=== PATIENT | female | born 1990 | race Caucasian/White ===

== ENCOUNTER 2017-03-04 19:18 | Emergency (ER) | payer OTHER ==
[2017-03-04] MEDS ORDERED: MIDAZOLAM HCL 5 MG/ML 2ML VIAL ONE (19:26)
[2017-03-04 19:28] VITALS: TEMP 36.9
[2017-03-04] MEDS ORDERED: NURSING VERBAL MED ORDER ONE (19:30)
[2017-03-04 19:34] VITALS: O2SAT 99
[2017-03-04] MEDS ORDERED: MIDAZOLAM HCL 1 MG/ML 2ML VIAL ONE (20:06)
[2017-03-04] MEDS ORDERED: MIDAZOLAM HCL 1 MG/ML 2ML VIAL IV ONE (20:15)
[2017-03-04 20:43] LABS: HEMATOCRIT 39.2 % (37-47); MEAN CELL VOLUME 88.1 fL (80-100); MEAN CORPUSCULAR HEMOGLOBIN 31.2 pg (25-34); MEAN CORPUSCULAR HGB CONC 35.5 g/dl (32-36); MEAN PLATELET VOLUME 9.5 fL (7.4-10.4); PLATELET COUNT 286 K/uL (130-400); RED BLOOD COUNT 4.45 M/uL (4.2-5.4); WHITE BLOOD COUNT 11.73 K/uL (4.8-10.8)
[2017-03-04 20:51] LABS: BLOOD UREA NITROGEN 19 mg/dl (7-18); BUN/CREATININE RATIO 19.7 (10-20); CALCIUM 8.9 mg/dl (8.5-10.1); CARBON DIOXIDE 28 mmol/L (21-32); CHLORIDE 106 mmol/L (98-107); CREATININE 0.98 mg/dl (0.60-1.20); GLUCOSE 92 mg/dl (70-99); POTASSIUM 4.4 mmol/L (3.5-5.1); SODIUM 139 mmol/L (136-145)
[2017-03-04] MEDS ORDERED: L-METAB PO (21:01)
[2017-03-04] MEDS ORDERED: PRVHFAIN INH (21:01)
[2017-03-04] MEDS ORDERED: NALTREXONE HCL PO (21:01)
[2017-03-04] MEDS ORDERED: PARO1TAB27 PO (21:01)
[2017-03-04] MEDS ORDERED: MIRT15TA3 PO (21:01)
[2017-03-04 21:12] LABS: BASO ABS # 0.21 K/uL (0-0.2); BASOPHIL % 1.8 %; COMPLETE YES; EOSINOPHIL % 0.9 %; LYMPH ABS # 3.39 K/uL (1.2-3.4); LYMPHOCYTE % 28.9 %; NEUTROPHILS % 49.1 %; VARIANT LYM ABS # 1.96 K/uL; VARIANT LYMPHOCYTE % 16.7 %
--- NOTE | 2017-03-04 21:50 | EMERGENCY ROOM VISIT NOTE ---
History Report prepared by Jason: Marques Fisher Under the Supervision of: Dr. Fabien Benitez D.O. First contact with patient: 19:26 Chief Complaint: SEIZURE Stated Complaint: SEIZURE History of Present Illness The patient is a 26 year old female who presents to the Emergency Room with complaints of a constant seizure starting 15 minutes prior to arrival. The patient's fiance states that the patient has a history of seizures. She is currently on naltrexone, and this has helped with her seizures, and she has not had one in a while. The patient has had abnormal EEGs in the past, and according to the fiance she does not have any mental health issues. Additionally , the patient has a history of POTS. Source of History: spouse/significant other Onset: 15 minutes prior to arrival Position: other (global) Quality: other (seizure) Timing: constant Review of Systems See HPI for pertinent positives & negatives. A total of 10 systems reviewed and were otherwise negative. Past Medical & Surgical Medical Problems: (1) Autonomic epileptic seizures Social History Marital Status: in relationship Housing Status: lives with family Occupation Status: unemployed Current/Historical Medications Scheduled L-Methylfolate W/ Cyanocobalam (Cerefolin), 1 TAB PO DAILY Mirtazapine (Remeron), 7.5 MG PO HS Paroxetine (Paxil), 20 MG PO BID [Naltrexone HCL], 4.5 MG PO DAILY Scheduled PRN Albuterol (Ventolin Hfa), 1-2 PUFFS INH Q4-6HRS PRN for SOB/Wheezing Allergies Coded Allergies: Benzoyl Peroxide (Verified Allergy, Unknown, Unknown, 03/04/17) Famotidine (Verified Allergy, Unknown, Turned blue/Seizure, 03/04/17) Metoclopramide (Verified Allergy, Unknown, Tardive dyekenesia, 03/04/17) Phenytoin (Verified Allergy, Unknown, Unknown, 03/04/17) Physical Exam Vital Signs Date Time Temp Pulse Resp B/P (MAP) Pulse Ox O2 Delivery O2 Flow Rate FiO2 03/04/17 22:01 74 16 96/66 99 Room Air 03/04/17 20:30 78 16 105/65 98 Room Air 03/04/17 20:04 92 18 121/89 100 Room Air 03/04/17 19:42 103 03/04/17 19:34 99 Room Air 03/04/17 19:28 36.9 132 18 157/116 100 Room Air Physical Exam CONSTITUTIONAL/VITAL SIGNS: Reviewed / noted above. GENERAL: Non-toxic in appearance. INTEGUMENTARY: Warm, dry, and [place]. HEAD: Normocephalic. EYES: Blinks when touching her eye lashes. Without scleral icterus or trauma. ENT/OROPHARYNX: clear and moist. LYMPHADENOPATHY/NECK: Is supple without lymphadenopathy or meningismus. RESPIRATORY: Breathing pattern appears voluntary. Lungs clear and equal. CARDIOVASCULAR: Regular rate and rhythm. GI/ABDOMEN: Soft and nontender. No organomegaly or pulsatile mass. No rebound or guarding. Normal bowel sounds. EXTREMITIES: Warm and well perfused. BACK: No CVA tenderness. NEUROLOGICAL: Does not respond to verbal stimuli. PSYCHIATRIC: normal affect. MUSCULOSKELETAL: She has stiffness in all extremities. Medical Decision & Procedures Laboratory Results 03/04/17 19:30 Red Blood Count 4.45, Mean Corpuscular Volume 88.1, Mean Corpuscular Hemoglobin 31.2, Mean Corpuscular Hemoglobin Concent 35.5, Mean Platelet Volume 9.5 03/04/17 19:30 Test 03/04/17 19:30 White Blood Count 11.73 K/uL (4.8-10.8) Red Blood Count 4.45 M/uL (4.2-5.4) Hemoglobin 13.9 g/dL (12.0-16.0) Hematocrit 39.2 % (37-47) Mean Corpuscular Volume 88.1 fL (80-100) Mean Corpuscular Hemoglobin 31.2 pg (25-34) Mean Corpuscular Hemoglobin Concent 35.5 g/dl (32-36) Platelet Count 286 K/uL (130-400) Mean Platelet Volume 9.5 fL (7.4-10.4) RDW Standard Deviation 40.6 fL (36.4-46.3) RDW Coefficient of Variation 12.6 % (11.5-14.5) Neutrophils % (Manual) 49.1 % Lymphocytes % (Manual) 28.9 % Variant Lymphocytes % (manual) 16.7 % Monocytes % (Manual) 2.6 % Eosinophils % (Manual) 0.9 % Basophils % (Manual) 1.8 % Neutrophils # (Manual) 5.76 K/uL (1.4-6.5) Total Absolute Neutrophils 5.76 K/uL (1.4-6.5) Lymphocytes # (Manual) 3.39 K/uL (1.2-3.4) Absolute Variant Lymphocytes 1.96 K/uL Total Absolute Lymphocytes 5.35 K/uL (1.2-3.4) Monocytes # (Manual) 0.30 K/uL (0.11-0.59) Eosinophils # (Manual) 0.11 K/uL (0-0.5) Basophils # (Manual) 0.21 K/uL (0-0.2) Anion Gap 5.0 mmol/L (3-11) Estimated GFR () 92.3 Estimated GFR (Non- 79.6 BUN/Creatinine Ratio 19.7 (10-20) Calcium Level 8.9 mg/dl (8.5-10.1) Total Creatine Kinase 110 U/L (26-192) Laboratory results as stated above per my review. Medications Administered Medications (Trade) Dose Ordered Sig/Tabitha Route Start Time Stop Time Status Last Admin Dose Admin Midazolam HCl (Versed Inj) 10 mg STK-MED ONCE .ROUTE 03/04/17 19:26 03/04/17 19:27 DC 03/04/17 20:03 2 MG Midazolam HCl (Versed Inj) 2 mg ONE ONCE IV 03/04/17 20:15 03/04/17 20:16 DC 03/04/17 20:20 2 MG ED Course 1925: Previous medical records were reviewed. The patient was evaluated in room A10. A complete history and physical examination was performed. I ordered Versed 2mg IV 2004: I reevaluated the patient, and she was still having the same activity. 2015: Versed 2mg IV 2151: On reevaluation, the patient is doing well and not seizing. I discussed the results and findings with the patient. She verbalized agreement of the treatment plan. She was discharged home. Medical Decision Differential diagnosis: Etiologies such as infection, hypoglycemia, electrolyte abnormalities, cardiac sources, intracerebral event, trauma, toxicologic, neurologic, as well as others were entertained. This is a 26-year-old female who presents to the ED with a chief complaint of a seizure like activity. Details are listed above. The patient's symptoms started a short while prior to her arrival here. The fianc initially presented with the patient and then the parents came in a little later. The patient's vital signs have been noted. Blood pressure was initially elevated as was her heart rate. The patient presents with hypertonicity/posturing like activity. She has some rhythmic shaking to her right leg but not to other portions of her body. Her arms and left leg are stiff and her back is arched. She has her neck arched as well. Her eyes are open and rolled into her head. The patient seems to have voluntary type breathing and holding breath at times. She blinks when touching her eyelids. She did not bite her tongue. There is no incontinence. Review the patient's records revealed that she had an EEG on where she actually had this same type of seizure-like activity and the EEG was normal during the activity. The patient's exam was otherwise unremarkable. The patient is reportedly chronically taking a walk some for this condition, according to the fianc. Patient was unable to provide any history. Mother reports that the patient has been to the [facility] and she has been told that this is a autonomic seizure. The patient's oxygen saturation saturations remained 100% throughout the activity. Blood work reveals a mild elevation of the white blood cell count. Chemistry panel was normal including a total CK. The patient's symptoms were felt to be a non- epileptic in nature. She was given 2 mg of Versed initially shortly after I saw her. 2 additional milligrams were given later as her symptoms did not subside. The parents report that the patient has received up to 8-10 mg of Versed in the past for these symptoms. The seizure-like activity subsided after 4 mg of Versed. The patient was monitored. She was felt to be stable for discharge upon awakening. 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 The patient awoke and walk to the bathroom and requested that her urine be tested for urinary tract infection. Urine dip revealed trace leukocytes was otherwise negative. test was negative. She was felt to be stable for discharge. Medication Reconcilliation Current Medication List: was personally reviewed by me Blood Pressure Screening Patient's blood pressure: Normal blood pressure Impression Primary Impression: Seizure-like activity Scribe Attestation The scribe's documentation has been prepared under my direction and personally reviewed by me in its entirety. I confirm that the note above accurately reflects all work, treatment, procedures, and medical decision making performed by me. Departure Information Dispostion Home / Self-Care Referrals No Doctor, Assigned (PCP) Forms HOME CARE DOCUMENTATION FORM, IMPORTANT VISIT INFORMATION Patient Instructions My [facility] Additional Instructions Follow-up with your doctor for further care and evaluation in 1 week. Return to the emergency department for worsening or new symptoms or any concerns. You have been examined and treated today on an emergency basis only. This is not a substitute for, or an effort to provide, complete comprehensive medical care. It is impossible to recognize and treat all injuries or illnesses in a single emergency department visit. It is therefore important that you follow up closely with your doctor. Call as soon as possible for an appointment.
[2017-03-04 22:01] VITALS: BP 96/66; PULSE 74; O2SAT 99
== END 2017-03-04 22:03 | disposition home or self-care (01) ==
LOC: EDBD 19:19 → C.EDB 19:19 → C.EDA 22:03
DX: F44.5 Conversion disorder with seizures or convulsions (principal)